=== PATIENT | male | born 1970 | race African-American/Black ===

== ENCOUNTER 2017-08-03 23:50 | Emergency (ER) | payer SELFPAY ==
[~2017-08-03] VITALS: Ht 182.9 cm; Wt 113.6 kg
[~2017-08-03 23:50] MED LIST: 1-ME1LIQ PO; BUSP5TAB3 PO; CLEO300C2 PO; DEPA125T PO; GLUCTAB PO; HYDR12.56 PO; METO100T PO; PRIN5TAB PO; SERO100T PO; VIST25CA PO
[2017-08-03 23:56] VITALS: BP 171/91; PULSE 91; RESP 20; TEMP 98.5; O2SAT 96
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
[2017-08-04] MEDS ORDERED: SODIUM CHLOR 0.9% 1000 ML INJ 1,000 ML IV ONE (00:45)
[2017-08-04] MEDS ORDERED: LORazepam 2 MG/ML VIAL IV PUSH ONE ×2 (00:45)
[2017-08-04 02:30] LABS: AUTOMATED NEUTROPHIL # 7.7 TH/MM3 (1.8-7.7); BASOPHIL # 0.1 TH/MM3 (0-0.2); BASOPHIL % 0.6 % (0.0-2.0); EOSINOPHIL # 0.1 TH/MM3 (0-0.4); EOSINOPHIL % 0.8 % (0.0-4.0); HEMATOCRIT 36.7 % (39.0-51.0); HEMOGLOBIN 12.4 GM/DL (13.0-17.0); LYMPH % 20.3 % (9.0-44.0); LYMPHOCYTE # 2.2 TH/MM3 (1.0-4.8); MEAN CELL VOLUME 96.7 FL (80.0-100.0); MEAN CORPUSCULAR HEMOGLOBIN 32.6 PG (27.0-34.0); MEAN CORPUSCULAR HGB CONC 33.7 % (32.0-36.0); MEAN PLATELET VOLUME 8.4 FL (7.0-11.0); MONO % 7.9 % (0.0-8.0); MONOCYTE # 0.9 TH/MM3 (0-0.9); NEUT % 70.4 % (16.0-70.0); PLATELET COUNT 192 TH/MM3 (150-450); WHITE BLOOD COUNT 10.9 TH/MM3 (4.0-11.0)
[2017-08-04 02:46] LABS: ALBUMIN 3.7 GM/DL (3.4-5.0); ALT (GPT) 54 U/L (12-78); AST (GOT) 97 U/L (15-37); BICARBONATE 21.1 MEQ/L (21.0-32.0); BLOOD UREA NITROGEN 20 MG/DL (7-18); CHLORIDE 105 MEQ/L (98-107); CREATININE 1.35 MG/DL (0.60-1.30); GLOMERULAR FILTRATION RATE 69 ML/MIN (>89); GLUCOSE,RANDOM 78 MG/DL (74-106); SODIUM (NA) 140 MEQ/L (136-145)
--- NOTE | 2017-08-04 02:47 | RADRPT ---
EXAM DATE/TIME: 08/04/2017 01:34 [facility] COMPARISON: CT BRAIN W/O CONTRAST, June 26, 2015, 3:38. INDICATIONS : Altered mental status. RADIATION DOSE: 61.36 CTDIvol (mGy) MEDICAL HISTORY : Non-responsive. SURGICAL HISTORY : Non-responsive. ENCOUNTER: Initial ACUITY: 1 day PAIN SCALE: Non-responsive LOCATION: cranial TECHNIQUE: Multiple contiguous axial images were obtained of the head. Using automated exposure control and adj ustment of the mA and/or kV according to patient size, radiation dose was kept as low as reasonably a chievable to obtain optimal diagnostic quality images. DICOM format image data is available electro nically for review and comparison. FINDINGS: CEREBRUM: The ventricles are normal for age. No evidence of midline shift, mass lesion, hemorrhage or acute in farction. No extra-axial fluid collections are seen. Cavum septa pellucidum. POSTERIOR FOSSA: The cerebellum and brainstem are intact. The 4th ventricle is midline. The cerebellopontine angle i s unremarkable. EXTRACRANIAL: The visualized portion of the orbits is intact. SKULL: The calvaria is intact. No evidence of skull fracture. CONCLUSION: 1. No acute findings in the brain. Sam Carson MD on August 04, 2017 at 2:45 Board Certified Radiologist. This report was verified electronically.
--- NOTE | 2017-08-04 02:50 | RADRPT ---
EXAM DATE/TIME: 08/04/2017 01:34 [facility] COMPARISON: No previous studies available for comparison. INDICATIONS : Altered mental status; found unresponsive. RADIATION DOSE: 24.79 CTDIvol (mGy) MEDICAL HISTORY : Non-responsive. SURGICAL HISTORY : Non-responsive. ENCOUNTER: Initial ACUITY: 1 day PAIN SCALE: Non-responsive LOCATION: neck TECHNIQUE: Volumetric scanning of the cervical spine was performed. Multiplanar reconstructions in the sagittal, coronal and oblique axial planes were performed. Using automated exposure control and adjustment o f the mA and/or kV according to patient size, radiation dose was kept as low as reasonably achievable to obtain optimal diagnostic quality images. DICOM format image data is available electronically f or review and comparison. FINDINGS: There is mild reversal of the cervical lordosis from C2-C4. Vertebral body height is maintained. In frontal projection, there is a curvature of the cervical thoracic spine convex towards the right. N o compression deformity is seen. The posterior elements are in normal alignment without evidence of locked or perched facets. The atlantoaxial articulation is intact. C2-C3: No fracture seen. The neural foramen are patent. C3-C4: No fracture seen. The neural foramen are patent. C4-C5: No fracture seen. The neural foramen are patent. C5-C6: No fracture seen. The neural foramen are patent. C6-C7: No fracture seen. The neural foramen are patent. C7-T1: No fracture seen. The neural foramen are patent. CONCLUSION: No evidence of fracture or spondylolisthesis. Right cervical thoracic scoliosis. Sam Carson MD on August 04, 2017 at 2:46 Board Certified Radiologist. This report was verified electronically.
[2017-08-04 02:56] LABS: ALKALINE PHOSPHATASE 53 U/L (45-117); TOTAL BILIRUBIN ADULT 1.2 MG/DL (0.2-1.0); TOTAL PROTEIN 7.6 GM/DL (6.4-8.2)
[2017-08-04 04:29] VITALS: BP 147/97; PULSE 80; RESP 16; O2SAT 98
[2017-08-04 07:15] VITALS: BP 169/77; PULSE 66; RESP 16; O2SAT 96
--- NOTE | 2017-08-04 15:38 | PD ---
Physical Exam Date Seen by Provider: Aug 04, 2017 Time Seen by Provider: 15:36 Narrative 47-year-old male previously brought in via EMS, was medically cleared for psychiatric evaluation. Patient has been seen by psychiatric staff and deemed psychiatrically stable for discharge at this time. Patient remains medically stable at this time. Patient is to follow-up with [facility] as discussed. Data Data Last Documented VS Vital Signs Date Time Temp Pulse Resp B/P (MAP) Pulse Ox O2 Delivery O2 Flow Rate FiO2 08/04/17 07:15 66 16 169/77 (107) 96 Room Air 08/04/17 04:29 2.00 08/03/17 23:56 98.5 Orders Orders Complete Blood Count With Diff (08/04/17 00:31) Comprehensive Metabolic Panel (08/04/17 00:31) Thyroid Stimulating Hormone (08/04/17 00:31) Psych Screen (08/04/17 00:31) Drug Screen, Random Urine (08/04/17 00:31) Alcohol (Ethanol) (08/04/17 00:31) Sodium Chlor 0.9% 1000 Ml Inj (Ns 1000 M (08/04/17 00:45) Lorazepam Inj (Ativan Inj) (08/04/17 00:45) Ct Brain W/O Iv Contrast(Rout) (08/04/17 ) Ct Cerv Spine W/O Contrast (08/04/17 ) Lorazepam Inj (Ativan Inj) (08/04/17 00:45) Diet Regular Basic (08/04/17 Breakfast) Labs Laboratory Tests Test 08/04/17 01:57 08/04/17 02:05 Urine Opiates Screen NEG Urine Barbiturates Screen NEG Urine Amphetamines Screen NEG Urine Benzodiazepines Screen NEG Urine Cocaine Screen POS Urine Cannabinoids Screen NEG White Blood Count 10.9 TH/MM3 Red Blood Count 3.80 MIL/MM3 Hemoglobin 12.4 GM/DL Hematocrit 36.7 % Mean Corpuscular Volume 96.7 FL Mean Corpuscular Hemoglobin 32.6 PG Mean Corpuscular Hemoglobin Concent 33.7 % Red Cell Distribution Width 13.0 % Platelet Count 192 TH/MM3 Mean Platelet Volume 8.4 FL Neutrophils (%) (Auto) 70.4 % Lymphocytes (%) (Auto) 20.3 % Monocytes (%) (Auto) 7.9 % Eosinophils (%) (Auto) 0.8 % Basophils (%) (Auto) 0.6 % Neutrophils # (Auto) 7.7 TH/MM3 Lymphocytes # (Auto) 2.2 TH/MM3 Monocytes # (Auto) 0.9 TH/MM3 Eosinophils # (Auto) 0.1 TH/MM3 Basophils # (Auto) 0.1 TH/MM3 CBC Comment AUTO DIFF Differential Comment AUTO DIFF CONFIRMED Platelet Estimate NORMAL Platelet Morphology Comment NORMAL Red Cell Morphology Comment NORMAL Blood Urea Nitrogen 20 MG/DL Creatinine 1.35 MG/DL Random Glucose 78 MG/DL Total Protein 7.6 GM/DL Albumin 3.7 GM/DL Calcium Level 8.0 MG/DL Alkaline Phosphatase 53 U/L Aspartate Amino Transf (AST/SGOT) 97 U/L Alanine Aminotransferase (ALT/SGPT) 54 U/L Total Bilirubin 1.2 MG/DL Sodium Level 140 MEQ/L Potassium Level 3.9 MEQ/L Chloride Level 105 MEQ/L Carbon Dioxide Level 21.1 MEQ/L Anion Gap 14 MEQ/L Estimat Glomerular Filtration Rate 69 ML/MIN Thyroid Stimulating Hormone 3rd Gen 1.490 uIU/ML Ethyl Alcohol Level LESS THAN 3 MG/DL [facility] Medical Record Reviewed: Yes Supervised Visit with ERIN: Yes Narrative Course 47-year-old male previously brought in via EMS, was medically cleared for psychiatric evaluation. Patient has been seen by psychiatric staff and deemed psychiatrically stable for discharge at this time. Patient remains medically stable at this time. Patient is to follow-up with [facility] as discussed. Diagnosis Primary Impression: Substance-induced psychotic disorder Additional Impression: Delusions Referrals: [facility] Patient Instructions: General Instructions Additional Instruction: Patient is to follow-up with [facility] as discussed. Disposition: 01 DISCHARGE HOME Condition: Stable Dandy Roca Aug 04, 2017 15:38
[2017-08-04 15:40] VITALS: BP 154/72; PULSE 71; RESP 18; O2SAT 98
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
== END 2017-08-04 16:13 | disposition home or self-care (01) ==
LOC: NEPC 23:50 → NEPD 08-04 16:13
DX: F14.14 Cocaine abuse with cocaine-induced mood disorder (principal); F17.210 Nicotine dependence, cigarettes, uncomplicated; E11.9 Type 2 diabetes mellitus without complications; I10 Essential (primary) hypertension; Z79.84 Long term (current) use of oral hypoglycemic drugs; Z79.899 Other long term (current) drug therapy
CPT/HCPCS: 70450; 72125; 80053; 80307; 84443; 85025; 96374; 96375; 99284; J2060; J7030